=== PATIENT | female | born 1945 | race African-American/Black ===

== ENCOUNTER → 2017-10-20 | Outpatient (CLI) | payer OTHER ==
[~2017-10-20] MED LIST: ALIGN4 MG PO; ASTAXANTHIN4 MG PO; CALCIUM 500 +1 EAC5 PO; CRESTOR10 MG PO; DIGESTIVE ENZY1 EACH PO; GARLIC1 EACH PO; LIVER AID; MEGA RED KRILL OIL; NORCO 5-325 TA1 EACH PO; POLICOSANOL; PURE TAURINE500 MG PO; SELENIMIN50 MCG PO; TRIPLE OMEGA C400 MG PO; ULTRAM 50MG TAB50 MG PO; VITA; VITAMIN E400 UNIT PO; VITAMINC500 PO; ZANTAC 150MG T150 MG PO; ZINC30 M1 PO; [UNRECOGNIZED DRUG - OTHER]
--- NOTE | ~2017-10-20 | 2DMMODE ---
[facility] [address] [place] [address] 2 D/M-MODE ECHOCARDIOGRAM Name: YUAN FARRRAINE Room #: REG CL [facility]#: [id number] Admission: 10/20/17 Attend Phys: Homer White MD Discharge: Date of : 49 Date of Service: 10/20/17 1531 Report #: [id number] THIS REPORT FOR: //name// APPROVED REPORT Study performed: 10/20/2017 13:59:19 EXAM: Comprehensive 2D, Doppler, and color-flow Echocardiogram Patient Location: Out-Patient Status: routine BSA: 1.70 HR: 70 bpm BP: 124/75 mmHg Rhythm: NSR Other Information Study Quality: Good Indications Palpitations 2D Dimensions RVDd: 34.88 mm LVEF(%): 57.48 (>50%) IVSd: 7.61 (7-11mm) LVOT Diam: 19.02 (18-24mm) LVDd: 37.32 mm PWd: 7.80 (7-11mm) Ascending Ao: 31.87 (22-36mm) LVDs: 26.27 (25-40mm) Aortic Root: 28.33 mm Smith's LVEF: 57.48 % Volumes Left Atrial Volume (Systole) Single Plane 4CH: 39.38 mL Single Plane 2CH: 33.58 mL LA ESV Index: 23.00 mL/m2 Aortic Valve AoV Peak Vinnie.: 1.19 m/s AO Peak Gr.: 5.68 mmHg LVOT Max P.14 mmHg LVOT Max V: 1.02 m/s BRITTNEY Vmax: 2.42 cm2 Mitral Valve E/A Ratio: 0.8 MV Decel. Time: 200.63 ms [facility] [address] [place] [address] 2 D/M-MODE ECHOCARDIOGRAM Name: ANN FARRLANDA LINDA Room #: [facility]#: [id number] Admission: 10/20/17 Attend Phys: Homer White MD Discharge: Date of : 49 Date of Service: 10/20/17 1531 Report #: [id number] MV E Max Vinnie.: 0.83 m/s MV A Vinnie.: 0.99 m/s MV PHT: 58.18 ms IVRT: 78.43 ms Pulmonary Valve PV Peak Vinnie.: 0.79 m/s PV Peak Gr.: 2.48 mmHg Pulmonary Vein P Vein S: 0.57 m/s P Vein A: 0.27 m/s P Vein D: 0.35 m/s P Vein A Dur.: 106.1 msec P Vein S/D Ratio: 1.63 Tricuspid Valve TR Peak Vinnie.: 2.09 m/s RAP Estimate: 5.00 mmHg TR Peak Gr.: 17.48 mmHg PA Pressure: 23.00 mmHg Left Ventricle The left ventricle is normal size. There is normal left ventricular wall thickness. The left ventricular systolic function is normal. LVEF is 55-60%. Grade I - abnormal relaxation pattern. Right Ventricle The right ventricle is normal size. The right ventricular systolic function is normal. Atria The left atrium size is normal. Right atrium is at the upper limits of normal. Aortic Valve Aortic valve leaflets are mildly thickened. No aortic regurgitation is present. There is no aortic valvular stenosis. Mitral Valve Mitral valve leaflets are mildly thickened. Mild to moderate mitral regurgitation. No evidence of mitral valve stenosis. Tricuspid Valve The tricuspid valve is normal in structure. Moderate tricuspid regurgitation. Estimated PAP 23 mmHg. Pulmonic Valve The pulmonary valve is normal in structure. Trace pulmonic regurgitation. [address] [address] 2 D/M-MODE ECHOCARDIOGRAM Name: YUAN FARR Room #: REG CL [facility]#: [id number] Admission: 10/20/17 Attend Phys: Homer White MD Discharge: Date of : 49 Date of Service: 10/20/17 1531 Report #: [id number] Great Vessels The aortic root is normal in size. The ascending aorta is normal in size. IVC is normal in size and collapses >50% with inspiration. Pericardium There is no pericardial effusion. <Conclusion> The left ventricle is normal size. There is normal left ventricular wall thickness. The left ventricular systolic function is normal. Grade I - abnormal relaxation pattern. The right ventricle is normal size. The left atrium size is normal. Aortic valve leaflets are mildly thickened. Mitral valve leaflets are mildly thickened. Mild to moderate mitral regurgitation. Moderate tricuspid regurgitation. Estimated PAP 23 mmHg. <ELECTRONICALLY SIGNED> By: Homer Whiet MD 10/20/17 [phone] Homer White MD /INF
== END ==
LOC: CV 08:29
DX: R00.0 Tachycardia, unspecified (principal); Z88.1 Allergy status to other antibiotic agents; Z88.2 Allergy status to sulfonamides; Z88.0 Allergy status to penicillin

== ENCOUNTER → 2018-10-19 | Outpatient (CLI) | payer OTHER ==
--- NOTE | 2018-10-19 13:17 | 2DMMODE ---
[facility] [place] [address] 2 D/M-MODE ECHOCARDIOGRAM Name: YUAN FARRRAINE Room #: REG CL [facility]#: [id number] ������������� Admission: 10/19/18 ������������� Attend Phys: Homer White MD Discharge: ��� ������������� ��� Date of : 49 Date of Service: 10/19/18 1317 �� Report #: [id number] �������� ��������������������������������������������[id number] THIS REPORT FOR: //name// APPROVED REPORT Study performed: 10/19/2018 12:27:42 EXAM: Comprehensive 2D, Doppler, and color-flow Echocardiogram Patient Location: Echo lab Status: routine BSA: 1.70 HR: 69 bpm BP: 110/65 mmHg Rhythm: NSR Other Information Study Quality: Good Indications Palpitations 2D Dimensions RVDd: 33.33 mm IVSd: 8.46 (7-11mm) LVOT Diam: 17.89 (18-24mm) LVDd: 35.25 mm PWd: 8.90 (7-11mm) Ascending Ao: 32.07 (22-36mm) LVDs: 25.46 (25-40mm) Aortic Root: 29.64 mm IVC: 17.00 mm Volumes Left Atrial Volume (Systole) Single Plane 4CH: 31.52 mL Single Plane 2CH: 29.76 mL LA ESV Index: 19.00 mL/m2 Aortic Valve AoV Peak Vinnie.: 1.23 m/s AO Peak Gr.: 6.05 mmHg LVOT Max P.88 mmHg LVOT Max V: 1.31 m/s BRITTNEY Vmax: 2.68 cm2 Mitral Valve E/A Ratio: 0.8 MV Decel. Time: 174.44 ms MV E Max Vinnie.: 0.87 m/s [facility] [address] [place] [address] 2 D/M-MODE ECHOCARDIOGRAM Name: YUAN FARR Room #: REG [facility]#: [id number] ������������� Admission: 10/19/18 ������������� Attend Phys: Homer White MD Discharge: ��� ������������� ��� Date of : 49 Date of Service: 10/19/18 1317 �� Report #: [id number] �������� ��������������������������������������������[id number] MV A Vinnie.: 1.06 m/s MV PHT: 50.59 ms IVRT: 101.50 ms Pulmonary Valve PV Peak Vinnie.: 0.65 m/s PV Peak Gr.: 1.79 mmHg Pulmonary Vein P Vein S: 0.42 m/s P Vein A: 0.25 m/s P Vein D: 0.35 m/s P Vein A Dur.: 115.3 msec P Vein S/D Ratio: 1.20 Tricuspid Valve TR Peak Vinnie.: 2.35 m/s RAP Estimate: 5.00 mmHg TR Peak Gr.: 22.07 mmHg PA Pressure: 27.00 mmHg Left Ventricle The left ventricle is normal size. There is normal left ventricular wall thickness. The left ventricular systolic function is normal. The left ventricular ejection fraction is within the normal range. LVEF is 60-65%. Mild diastolic dysfunction is present (impaired relaxation pattern). Right Ventricle The right ventricle is normal size. The right ventricular systolic function is normal. Atria The left atrium size is normal. The right atrium size is normal. Aortic Valve The aortic valve is normal in structure. Trace aortic regurgitation. There is no aortic valvular stenosis. Mitral Valve Mitral valve leaflets are mildly thickened. Mild to moderate mitral regurgitation. No evidence of mitral valve stenosis. Tricuspid Valve The tricuspid valve is normal in structure. Moderate tricuspid regurgitation. PAP is estimated at 27 mmHg. Pulmonic Valve The pulmonary valve is normal in structure. Mild pulmonic [address] [address] 2 D/M-MODE ECHOCARDIOGRAM Name: YUAN FARR [facility] [id number] ������������� Admission: 10/19/18 ������������� Attend Phys: Homer White MD Discharge: ��� ������������� ��� Date of : 49 Date of Service: 10/19/18 1317 �� Report #: [id number] �������� ��������������������������������������������[id number] regurgitation. Great Vessels The aortic root is normal in size. IVC is normal in size and collapses >50% with inspiration. Pericardium There is no pericardial effusion. <Conclusion> The left ventricle is normal size. There is normal left ventricular wall thickness. The left ventricular systolic function is normal. Mild diastolic dysfunction is present (impaired relaxation pattern). The right ventricle is normal size. The left atrium size is normal. Trace aortic regurgitation. Mild to moderate mitral regurgitation. Moderate tricuspid regurgitation. PAP is estimated at 27 mmHg. ��������������������������������������������� <ELECTRONICALLY SIGNED> ���������������������������������������� By: Homer White MD ��������������������������������������������� 10/19/18 1317 16 131 Homer White MD /INF
== END ==
LOC: CV 11:52
DX: I08.8 Other rheumatic multiple valve diseases (principal)

== ENCOUNTER 2019-08-01 09:19 | Emergency (ER) | payer OTHER ==
[~2019-08-01] VITALS: Ht 162.6 cm; Wt 61.7 kg
--- NOTE | ~2019-08-01 | EKG ---
[facility] [place] [address] ELECTROCARDIOGRAM REPORT Name: YUAN FARR Room #: [facility]..#: [id number] Admission: Attend Phys: Discharge: Date of : 49 Report #: [id number] THIS REPORT FOR: cc: Maria Eugenia Campoverde MD, Carrie W. MD Epiphany, Epiphany MD ~ THIS REPORT FOR: //name// [facility] ED Test Date: 2019-08-01 Test Time: 10:14:39 Pat Name: YUAN FARR Department: Room: Gender: F Intelligence Clerk: : 1945 Requested By: Daren Gastelum Order Number: [id number] MD: Measurements Intervals [place] Rate: 84 P: 11 [place]: 157 QRS: 40 QRSD: 82 T: 48 QT: 361 QTc: 427 Interpretive Statements Sinus rhythm Borderline low voltage, extremity leads Compared to ECG 10/17/2014 17:56:36 No significant changes [email or web address] By: [id number] Epiphany Epiphany, /EPI
[2019-08-01 09:43] LABS: URINE BILIRUBIN NEGATIVE (Negative); URINE BLOOD NEGATIVE (Negative); URINE CLARITY CLEAR; URINE COLOR YELLOW; URINE GLUCOSE-RANDOM* NEGATIVE (Negative); URINE KETONES NEGATIVE (Negative); URINE LEUKOCYTES-REFLEX TRACE (Negative); URINE NITRITE-REFLEX NEGATIVE (Negative); URINE PROTEIN (DIPSTICK) NEGATIVE (Negative); URINE UROBILINOGEN 0.2 E.U./dl (0.2-1.0)
[2019-08-01 09:53] LABS: ABSOLUTE NEUTROPHILS 5.5 thou/uL (1.4-8.2); BASOPHILS 0.7 % (0.0-2.0); EOSINOPHILS 0.4 % (0.0-3.0); HEMOGLOBIN 12.3 gm/dL (12.0-15.0); LYMPHOCYTES 10.2 % (24.0-44.0); MCH 29.4 pg (26.0-34.0); MCHC 32.5 g/dL (28.0-37.0); MCV 90.6 fL (80.0-100.0); MONOCYTES 6.4 % (1.0-8.0); PLATELET COUNT 240 thou/uL (150-400); POLYS 82.3 % (36.0-66.0); RBC 4.19 mil/uL (4.20-5.00); RDW 14.7 % (10.5-14.5); WBC 6.7 thou/uL (4.0-11.0)
[2019-08-01 10:02] LABS: CALCIUM 9.1 mg/dL (8.5-10.1); CREATININE 0.8 mg/dL (0.6-1.0); POTASSIUM 3.5 mmol/L (3.5-5.1)
[2019-08-01 10:08] LABS: TOTAL PROTEIN 7.5 g/dL (6.4-8.2)
[2019-08-01] MEDS ORDERED: PROTONIX40 MG PO (12:30)
[2019-08-01 13:05] VITALS: BP 110/60
== END 2019-08-01 13:10 | disposition home or self-care (01) ==
LOC: ER 09:19
PROVIDERS: Emergency Medicine
DX: R10.13 Epigastric pain (principal); E78.5 Hyperlipidemia, unspecified; Z88.1 Allergy status to other antibiotic agents; Z88.2 Allergy status to sulfonamides; Z88.8 Allergy status to other drugs, medicaments and biological substances

== ENCOUNTER → 2019-08-30 | Outpatient (CLI) | payer MEDICARE ==
[~2019-08-30] MED LIST changes: +PROTONIX40 MG PO
== END ==
LOC: SJCVCIMAG 15:13
DX: I34.0 Nonrheumatic mitral (valve) insufficiency (principal); E78.00 Pure hypercholesterolemia, unspecified; Z90.710 Acquired absence of both cervix and uterus; Z79.899 Other long term (current) drug therapy

== ENCOUNTER 2020-07-01 23:44 | Emergency (ER) | payer OTHER ==
[~2020-07-01] VITALS: Ht 162.6 cm; Wt 59.4 kg
[2020-07-02 02:54] LABS: URINE BILIRUBIN NEGATIVE (Negative); URINE BLOOD TRACE (Negative); URINE CLARITY CLEAR; URINE COLOR YELLOW; URINE GLUCOSE-RANDOM* NEGATIVE (Negative); URINE KETONES NEGATIVE (Negative); URINE LEUKOCYTES-REFLEX 1+ (Negative); URINE NITRITE-REFLEX NEGATIVE (Negative); URINE PROTEIN (DIPSTICK) NEGATIVE (Negative); URINE UROBILINOGEN 0.2 E.U./dl (0.2-1.0)
[2020-07-02 02:59] LABS: ABSOLUTE NEUTROPHILS 2.8 thou/uL (1.4-8.2); BASOPHILS 0.8 % (0.0-2.0); EOSINOPHILS 0.7 % (0.0-3.0); HEMATOCRIT 34.8 % (37.0-47.0); HEMOGLOBIN 11.3 gm/dL (12.0-15.0); LYMPHOCYTES 20.1 % (24.0-44.0); MCH 29.4 pg (26.0-34.0); MCHC 32.6 g/dL (28.0-37.0); MCV 90.1 fL (80.0-100.0); PLATELET COUNT 227 thou/uL (150-400); POLYS 69.4 % (36.0-66.0); RBC 3.86 mil/uL (4.20-5.00); RDW 15.5 % (10.5-14.5); WBC 4.1 thou/uL (4.0-11.0)
[2020-07-02 03:02] LABS: BACTERIA-REFLEX 1-9 Few /HPF (None Seen); CASTS None Seen /LPF (None Seen); CRYSTALS None Seen /LPF (None Seen); MUCUS 0-3 Light strn/LPF (None Seen); SQUAMOUS 0-3 Few /LPF (0-3); URINE RBC 0-2 Rare /HPF (0-2); URINE WBC-REFLEX 0-5 Rare /HPF (0-5)
[2020-07-02 03:11] LABS: CALCIUM 9.9 mg/dL (8.5-10.1); CREATININE 0.8 mg/dL (0.6-1.0); POTASSIUM 3.4 mmol/L (3.5-5.1)
[2020-07-02 03:15] LABS: PROTIME 10.1 Seconds (9.3-11.4)
[2020-07-02 03:50] VITALS: BP 104/56
== END 2020-07-02 03:55 | disposition home or self-care (01) ==
LOC: ER 23:44
PROVIDERS: Emergency Medicine
DX: K64.4 Residual hemorrhoidal skin tags (principal); E78.5 Hyperlipidemia, unspecified; Z90.711 Acquired absence of uterus with remaining cervical stump; Z90.89 Acquired absence of other organs; Z79.899 Other long term (current) drug therapy; Z88.2 Allergy status to sulfonamides

== ENCOUNTER → 2020-08-12 | Outpatient (CLI) | payer OTHER | LOC: SJCVC 12:49 | PROVIDERS: ATTEND Internal Medicine Cardiovascular Disease | DX: R07.9 Chest pain, unspecified (principal); I34.0 Nonrheumatic mitral (valve) insufficiency; E78.00 Pure hypercholesterolemia, unspecified; R60.9 Edema, unspecified; R00.2 Palpitations; Z88.1 Allergy status to other antibiotic agents; Z88.0 Allergy status to penicillin; Z88.2 Allergy status to sulfonamides; Z88.8 Allergy status to other drugs, medicaments and biological substances; Z79.899 Other long term (current) drug therapy ==

== ENCOUNTER → 2020-10-31 | Outpatient (CLI) | payer OTHER ==
[~2020-10-31] VITALS: Ht 162.6 cm; Wt 60.3 kg
[~2020-10-31] MED LIST changes: +A-CARO-2525000 UNIT PO; +CITRACAL + D E1 EACH PO; +GARLIC500 MG PO; +KRILL OIL 1,001 EAC1 PO; -LIVER AID; +LIVER AID PO; +PANTOTHENIC ACID PO; -POLICOSANOL; +POLICOSANOL PO; +PROBIOTIC1 EAC7 PO; +SELENIUM100 MCG PO; +ZINC50 M1 PO
--- NOTE | 2020-11-01 09:46 | P ---
[facility] [place] [address] PROCEDURE REPORT Name: YUAN FARR Room #: REG [facility]#: [id number] Admission: 10/31/20 Attend Phys: Junior Badillo Discharge: Date of : 49 Report #: [id number] THIS REPORT FOR: cc: Maria Eugenia Campoverde MD, Carrie W. MD [place], Christian C. MD ~ DOC #: [id number] Junior Matta MD DATE OF SERVICE: 10/31/2020 PROCEDURE PERFORMED: Upper endoscopy with biopsies. HISTORY OF PRESENT ILLNESS: The patient is a 74-year-old female who reports intermittent heartburn symptoms and burning in her throat. She denies any dysphagia or odynophagia. No nausea or vomiting. No previous history of upper endoscopy. She took Pepcid on a daily basis for a month, which helped with indigestion, but not with the burning sensation. Plan is for upper endoscopy. DESCRIPTION OF PROCEDURE: The risks and benefits of the procedure were explained to the patient, those risks including but not limited to bleeding, perforation and the risk of sedation. She understood these risks and gave informed consent. Sedation was given using propofol per anesthesia. Next, using a standard Olympus upper endoscope, the scope was placed in the patient's mouth and advanced under direct vision through the esophagus, stomach and into the second portion of the duodenum. The larynx was normal in appearance. The upper and mid esophagus was normal. At the GE junction, a possible small segment of Kevin's esophagus was noted. Biopsies were obtained. There was no evidence of reflux esophagitis. Overall, the gastric mucosa was normal. In the fundus, there was a mild gastritis noted in the body and the antrum. Biopsies were obtained to rule out H. pylori. No evidence of ulcerations or erosions. The pylorus was normal and patent. The duodenal bulb, first and second portion were all normal. The scope was then withdrawn and the procedure terminated. The patient tolerated the procedure well. IMPRESSION: 1. 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 2. Mild gastritis. 3. Otherwise, normal upper endoscopy. RECOMMENDATIONS: 1. Await biopsy results. 2. Recommend a trial of daily PPI therapy for ongoing burning in her throat. If the patient has Kevin's esophagus, would recommend long-term PPI therapy as well. Thank you for allowing me to participate in her care. [address] [address] PROCEDURE REPORT Name: YUAN FARR Room #: REG [facility]#: [id number] Admission: 10/31/20 Attend Phys: Junior Badillo Discharge: Date of : 49 Report #: [id number] Junior Matta MD CCM/AMNUELITO/BIBIANA <ELECTRONICALLY SIGNED> By: Junior Matta MD 11/01/20 0946 0939 [id number] Junior Matta MD /nt
--- NOTE | 2020-11-04 11:07 | PATH ---
[facility] [place] [address] [address] [place] [address] PATHOLOGY RPT PROCEDURE Name: YUAN FARRINE Room #: REG [facility].#: [id number] Admission: 10/31/20 Date of : 49 Discharge: Report #: [id number] Path Case #: [id number] [facility] Accession Number: [id number] . 01 Material submitted: . PART A: gastrointestinal site - BIOPSY GASTRITIS PART B: esophagus - BIOPSY DISTAL ESOPHAGUS. Modifiers: distal . 01 Clinical history: . DTS/EGD/GERD HEARTBURN FOR B- R/O KURTZ'S . 02 Diagnosis: A. Gastric mucosa, gastritis, endoscopic biopsy: - Helicobacter pylori-induced moderate active gastritis. - Negative for intestinal metaplasia, atrophy or dysplasia. - Moderate number of Helicobacter pylori organisms identified on the properly-controlled immunohistochemical stain. . B. Gastroesophageal mucosa, distal esophagus, rule out Kurtz's, endoscopic biopsy: - Mild esophagitis showing features of reflux esophagitis. - Focal gastric cardia-type mucosa present without any intestinal metaplasia or dysplasia. . (IUV:mml; 11/03/2020) QLM 11/03/2020 1746 Local . 02 Electronically signed: . Klaudia Whiting MD, Pathologist NPI- [id number] . 01 Gross description: . A. Received in formalin labeled "Straws, Yuan and biopsy gastritis rule out H. pylori". Received are 4 crisostomo-brown soft tissue fragments ranging from 0.2-0.4 cm. Specimen is entirely submitted in cassette A1. . B. Received in formalin labeled "Straws, Yuan and biopsy distal esophagus rule out Kurtz's". Received are 2 crisostomo-brown soft tissue fragments ranging from 0.2-0.3 cm. Specimen is entirely submitted in cassette B1.([facility]; 10/31/2020) . [facility] 11/03/2020 1745 Local . 02 Pathologist provided ICD-10: K29.70, B96.81, K20.80 . [address] [address] PATHOLOGY RPT PROCEDURE Name: YUAN FARR LINDA Room #: REG [facility]#: [id number] Admission: 10/31/20 Date of : 49 Discharge: Report #: [id number] Path Case #: [id number] [facility] . [id number], [id number] Specimen Comment: A courtesy copy of this report has been sent to [phone], [phone] Specimen Comment: [id number] Specimen Comment: Report sent to / DR NARAYAN Performed at: [address], [place] [id number] MD Garrick Zayas MD Phone: [phone] Performed at: [address] [id number] MD Klaudia Whiting MD Phone: [phone]
== END | disposition home or self-care (01) ==
LOC: GI 08:46
PROVIDERS: ATTEND Specialist
DX: R12 Heartburn (principal); K29.70 Gastritis, unspecified, without bleeding; K21.00 Gastro-esophageal reflux disease with esophagitis, without bleeding; B96.81 Helicobacter pylori [H. pylori] as the cause of diseases classified elsewhere; E78.00 Pure hypercholesterolemia, unspecified; E78.5 Hyperlipidemia, unspecified; Z98.890 Other specified postprocedural states; Z79.899 Other long term (current) drug therapy; Z90.710 Acquired absence of both cervix and uterus; Z20.822 Contact with and (suspected) exposure to COVID-19; Z91.040 Latex allergy status; Z88.2 Allergy status to sulfonamides; Z88.8 Allergy status to other drugs, medicaments and biological substances
CPT/HCPCS: 62110; 62900

== ENCOUNTER → 2021-08-13 | Outpatient (CLI) | payer OTHER | LOC: SJCVCIMAG 08:14 | PROVIDERS: ATTEND Internal Medicine Cardiovascular Disease | DX: I08.8 Other rheumatic multiple valve diseases (principal); E78.00 Pure hypercholesterolemia, unspecified; R07.9 Chest pain, unspecified; R60.9 Edema, unspecified; Z88.1 Allergy status to other antibiotic agents; Z88.0 Allergy status to penicillin; Z88.2 Allergy status to sulfonamides; Z88.8 Allergy status to other drugs, medicaments and biological substances; Z79.899 Other long term (current) drug therapy ==